=== PATIENT | male | born 1985 | race Caucasian/White ===

== ENCOUNTER 2017-03-08 22:32 | Emergency (ER) | payer MEDICAID ==
[~2017-03-08] VITALS: Ht 182.9 cm; Wt 103.0 kg
[~2017-03-08 22:32] MED LIST: PRED20 PO; TRIA.1%T TOP
[2017-03-08 22:48] VITALS: BP 157/101; PULSE 102; RESP 0; RESP 16; TEMP 98.9; O2SAT 100
--- NOTE | 2017-03-08 23:04 | PD ---
HPI Chief Complaint: Skin Problem Time Seen by Provider: 23:00 Travel History International Travel<30 days: No Contact w/Intl Traveler<30days: No Traveled to known affect area: No History of Present Illness HPI This 31-year-old male is complaining of swollen area under his left armpit. This been there for a few days. He's had similar trouble in the past which was an abscess that required lancing. He is not aware of fever or chills. PFSH Past Medical History Diminished Hearing: No Gastrointestinal Disorders: Yes (IBS) Past Surgical History Appendectomy: Yes Tonsillectomy: Yes Social History Alcohol Use: Yes (OCC) Tobacco Use: Yes Substance Use: No Allergies-Medications (Allergen,Severity, Reaction): Coded Allergies: No Known Allergies (Verified , 03/20/16) Reported Meds & Prescriptions Reported Meds & Active Scripts Active Triamcinolone Acetonide 0.1 % Cre 1 Applic TOP ONCE PRN APPLY TO: Deltasone 20 Mg Tab (Prednisone) 20 Mg Tab 40 Mg PO DAILY Review of Systems General / Constitutional: No: Fever, Chills Eyes: No: Diploplia, Blurred Vision HENT: No: Headaches Cardiovascular: No: Chest Pain or Discomfort Respiratory: No: Cough, Shortness of Breath Gastrointestinal: No: Vomiting Genitourinary: No: Urgency Musculoskeletal: Positive: Pain, No: Myalgias Skin: Positive Lumps, No Rash Physical Exam Narrative GENERAL: Well-developed male SKIN: Focused skin assessment warm/dry. There is a swollen tender area in the left axilla which measures about a centimeter in diameter HEAD: Atraumatic. Normocephalic. EYES: Pupils equal and round. No scleral icterus. No injection or drainage. ENT: No nasal bleeding or discharge. Mucous membranes pink and moist. NECK: Trachea midline. No JVD. . MUSCULOSKELETAL: No obvious deformities. No clubbing. No cyanosis. No edema. NEUROLOGICAL: Awake and alert. No obvious cranial nerve deficits. Motor grossly within normal limits. Normal speech. PSYCHIATRIC: Appropriate mood and affect; insight and judgment normal. Data Data Last Documented VS Vital Signs Date Time Temp Pulse Resp B/P Pulse Ox O2 Delivery O2 Flow Rate FiO2 03/08/17 23:03 16 03/08/17 22:48 98.9 102 157/101 100 Orders Lidocai-Epi 1%-1:100,000 Inj (Xylocaine- (03/08/17 23:15) MDM Medical Decision Making Medical Screen Exam Complete: Yes Emergency Medical Condition: Yes Medical Record Reviewed: Yes Differential Diagnosis Differential includes abscess of axilla Narrative Course I&D has been done. The patient tolerated the procedure well and a moderate amount of pus was obtained. He'll be released with prescription for Bactrim and Lortab. The abscess was packed and the packing is to be removed in 2 days Diagnosis Primary Impression: Abscess of axilla, left Additional Instructions: Packing removal 2 days Scripts Hydrocodone-Acetaminophen (Lortab)7.5-325 Mg Tab1 Tab PO Q4H PRN (PAIN) #20 TAB Ref 0 Prov:Dani Shah MD 03/08/17 Sulfamethoxazole-Trimethoprim (Bactrim DS)800-160 Mg Tab1 Tab PO BID #14 TAB Ref 0 Prov:Dani Shah MD 03/08/17 Disposition: 01 DISCHARGE HOME Condition: Stable Dani Shah MD March 08, 2017 23:04
[2017-03-08] MEDS ORDERED: LIDOCAINE 1%/EPINEPHrine 1:100,000 SOLN 20 ML VIAL INFIL ONE (23:15)
[2017-03-08] MEDS ORDERED: BACT800T5 PO (23:24)
[2017-03-08] MEDS ORDERED: HYDR-3534 PO (23:24)
[2017-03-08] MEDS ORDERED: IBUPROFEN 800 MG TAB PO ONE (23:30)
== END 2017-03-08 23:52 | disposition home or self-care (01) ==
LOC: PHED 22:32
DX: L02.412 Cutaneous abscess of left axilla (principal); Z72.0 Tobacco use
CPT/HCPCS: 10061

== ENCOUNTER 2017-03-11 21:16 | Emergency (ER) | payer MEDICAID ==
[~2017-03-11] VITALS: Ht 182.9 cm; Wt 98.5 kg
[~2017-03-11 21:16] MED LIST changes: +BACT800T5 PO; +HYDR-3534 PO; -PRED20 PO; -TRIA.1%T TOP
[2017-03-11 21:26] VITALS: BP 147/115; PULSE 121; RESP 12; TEMP 98.4; O2SAT 99
[2017-03-11 21:38] VITALS: BP 161/102; PULSE 130; RESP 20; TEMP 98.2; O2SAT 97
[2017-03-11] MEDS ORDERED: METH18TA PO (21:47)
== END 2017-03-11 22:00 | disposition left against medical advice (07) ==
LOC: PHED 21:16
DX: Z53.20 Procedure and treatment not carried out because of patient's decision for unspecified reasons (principal)
CPT/HCPCS: 99281